=== PATIENT | male | born 1950 | race Two or more races ===

== ENCOUNTER 2025-02-01 10:34 | Inpatient (IN) | payer OTHER ==
[~2025-02-01] VITALS: Ht 170.2 cm; Wt 98.1 kg
[2025-02-01] MEDS ORDERED: IOHEXOL-350 100 ML VIAL IV ONE (10:41)
[2025-02-01] MEDS ORDERED: IV NS 0.9% 250 ML IV ONE (10:41)
[2025-02-01 10:55] LABS: PLATELET COUNT (AUTO) 269 K/uL (150-450); RED BLOOD CELL COUNT(AUTO) 5.42 MIL/uL (4.5-6.0); RED CELL DISTRIBUTION WIDTH 14.1 % (11.5-15.0); WHITE BLOOD COUNT (AUTO) 9.2 K/uL (4.3-11.0)
[2025-02-01 11:03] LABS: CALCIUM, SERUM 9.3 mg/dL (8.5-10.1); CREATININE 0.8 mg/dL (0.6-1.3); SODIUM SERUM 136 mmol/L (136-145); UREA NITROGEN, BLOOD 15 mg/dL (7-18)
[2025-02-01 11:09] LABS: ASPARTATE AMINOTRANSFERASE 20 U/L (15-37); TOTAL PROTEIN, SERUM 9.4 g/dL (6.4-8.2)
[2025-02-01 11:13] LABS: ALCOHOL, BLOOD < 3 mg/dL (0-10)
[2025-02-01 12:04] LABS: APPEARANCE,URINE Turbid (CLEAR); BLOOD, URINE Moderate Ery/uL (NEGATIVE); LEUKOCYTE ESTERASE ,URINE Large (NEGATIVE); UGLUCOSE Negative (NEGATIVE)
[2025-02-01 12:06] LABS: NITRITE, URINE POSITIVE (NEGATIVE)
[2025-02-01 12:10] LABS: ADD URINE CULTURE YES; SQUAMOUS EPITHELIAL CELL,UR None Seen /HPF (None Seen)
[2025-02-01 12:17] LABS: AMPHETAMINE, URINE NEGATIVE (NEGATIVE); BARBITURATE, URINE NEGATIVE (NEGATIVE); BENZODIAZEPINE, URINE NEGATIVE (NEGATIVE); CANNABINOID, URINE NEGATIVE (NEGATIVE); COCCAINE, URINE NEGATIVE (NEGATIVE); OPIATE, URINE NEGATIVE (NEGATIVE)
[2025-02-01] MEDS: CEFTRIAXONE 1GM BAG (ER ONLY) 1 GM/50 ML PIGGYBACK IV ONE (14:39)
[2025-02-01 20:00] VITALS: BP 148/87; TEMP 97.9; O2SAT 95
[2025-02-01] MEDS ORDERED: ACETAMINOPHEN 325 MG TABLET PO PRN (20:00)
[2025-02-01] MEDS ORDERED: Z GUARD REMEDY 4 OZ OINT TP PRN (20:00)
[2025-02-01] MEDS ORDERED: ONDANSETRON HCL/PF 4 MG/2 ML VIAL IVP PRN (20:00)
[2025-02-01] MEDS: ENOXAPARIN SODIUM 40 MG/0.4 ML DISP.SYRIN SQ SCH (21:20)
[2025-02-01] MEDS: ATORVASTATIN 40 MG TABLET PO SCH (21:21)
[2025-02-02] VITALS: BP 135/85; TEMP 98.8; O2SAT 93
[2025-02-02 04:00] VITALS: BP 167/98; TEMP 98.1; O2SAT 94
[2025-02-02 07:43] LABS: CALCIUM, SERUM 9.8 mg/dL (8.5-10.1); CREATININE 0.8 mg/dL (0.6-1.3); PHOSPHORUS 4.0 mg/dL (2.5-4.9); SODIUM SERUM 139.0 mmol/L (136-145); UREA NITROGEN, BLOOD 16.0 mg/dL (7-18)
[2025-02-02 07:44] LABS: PLATELET COUNT (AUTO) 252 K/uL (150-450); RED BLOOD CELL COUNT(AUTO) 5.28 MIL/uL (4.5-6.0); RED CELL DISTRIBUTION WIDTH 14.1 % (11.5-15.0); WHITE BLOOD COUNT (AUTO) 7.8 K/uL (4.3-11.0)
[2025-02-02 08:00] VITALS: BP 167/82; TEMP 97.7; O2SAT 96
[2025-02-02 08:15] LABS: LDL 58.0 mg/dL (0-99)
[2025-02-02] MEDS: CLOPIDOGREL BISULFATE 75 MG TABLET PO SCH (08:23)
[2025-02-02] MEDS: PANTOPRAZOLE 40 MG TABLET.DR PO SCH (08:23)
[2025-02-02 12:00] VITALS: BP 153/83; TEMP 97.9; O2SAT 95
[2025-02-02] MEDS: METOPROLOL TARTRATE 25 MG TABLET PO SCH (13:24)
[2025-02-02] MEDS: AMLODIPINE BESYLATE 10 MG TABLET PO SCH (13:24)
[2025-02-02] MEDS ORDERED: AMLO-213 PO (13:38)
[2025-02-02] MEDS ORDERED: ROSU5TAB PO (13:38)
[2025-02-02] MEDS ORDERED: TICA90TA PO (13:38)
[2025-02-02] MEDS ORDERED: LEVO750T46 PO (13:38)
[2025-02-02] MEDS ORDERED: METO25TA20 PO (13:38)
[2025-02-02] MEDS: CEFTRIAXONE 1 G in IV D5W 50 ML IV SCH (14:24)
[2025-02-02 16:00] VITALS: BP 150/80; TEMP 98.6; O2SAT 95
[2025-02-02] MEDS: TICAGRELOR 90 MG TABLET PO SCH (17:28)
[2025-02-02] MEDS: MAGNESIUM HYDROXIDE 30 ML UDC PO PRN (18:36)
[2025-02-02 20:00] VITALS: BP 162/89; TEMP 97.9; O2SAT 98
[2025-02-03] VITALS: BP 165/86; TEMP 98.1; O2SAT 95
[2025-02-03 04:00] VITALS: BP 162/92; TEMP 98.5; O2SAT 95
[2025-02-03] MEDS: BISACODYL SUPP (10 MG) 10 MG/SUPP.RECT SUPP.RECT RC ONE ×2 (05:05→05:08)
[2025-02-03 08:00] VITALS: BP 157/91; TEMP 98.1; O2SAT 98
[2025-02-03] MEDS: POLYETHYLENE GLYCOL 3350 17 GM POWD.PACK PO SCH (08:25)
[2025-02-03 12:00] VITALS: BP 148/94; TEMP 98.1; O2SAT 97
[2025-02-03 16:00] VITALS: BP 151/87; TEMP 97.9; O2SAT 97
[2025-02-03 20:00] VITALS: BP 159/80; TEMP 97.5; O2SAT 98
[2025-02-04] VITALS (7 sets, daily range): BP systolic 137–162; BP diastolic 80–92; TEMP 97.5–98.4; O2SAT 95–98
[2025-02-04] MEDS ORDERED: CARV12.5 PO (10:49)
[2025-02-04] MEDS: CARVEDILOL 12.5 MG TABLET PO SCH (11:18)
[2025-02-04] MEDS ORDERED: IOHEXOL-350 100 ML VIAL IV ONE (16:56)
[2025-02-04] MEDS ORDERED: CT SWABBABLE VALVE TRANS SET 1 EA INFUS.SET MC ONE (16:56)
[2025-02-04] MEDS ORDERED: IV NS 0.9% 250 ML IV ONE (16:57)
[2025-02-05 04:00] VITALS: BP 172/96; TEMP 97.5; O2SAT 95
[2025-02-05 08:00] VITALS: BP 186/96; TEMP 97.1; O2SAT 97
[2025-02-05] MEDS ORDERED: CARVEDILOL 12.5 MG TABLET PO SCH ×2 (08:30→17:00)
[2025-02-05] MEDS ORDERED: AMLODIPINE BESYLATE 10 MG TABLET PO SCH (08:30)
[2025-02-05 12:03] VITALS: BP 154/91; TEMP 98.3; O2SAT 96
[2025-02-05] MEDS: LEVOFLOXACIN (250MG) 250 MG TABLET PO ONE (14:40)
[2025-02-05] MEDS ORDERED: CARVEDILOL 12.5 MG TABLET PO ONE (15:00)
[2025-02-05] MEDS ORDERED: METO25TA6 PO (15:17)
[2025-02-05] MEDS: METOPROLOL TARTRATE 25 MG TABLET PO SCH (15:32)
[2025-02-05 16:00] VITALS: BP 160/93; TEMP 98.4; O2SAT 98
[2025-02-05 17:14] VITALS: BP 151/90; TEMP 98.4; O2SAT 98
[2025-02-05 20:00] VITALS: BP 158/88; TEMP 98.9; O2SAT 95
[2025-02-06 04:00] VITALS: BP 168/88; TEMP 98.6; O2SAT 95
[2025-02-06] MEDS: AMLODIPINE BESYLATE 10 MG TABLET PO SCH (08:22)
[2025-02-06] MEDS ORDERED: METO50TA16 PO (08:23)
[2025-02-06] MEDS ORDERED: CLONIDINE HCL 0.1 MG TABLET PO PRN (08:30)
[2025-02-06] MEDS: METOPROLOL TARTRATE 25 MG TABLET PO SCH (08:53)
[2025-02-06 12:00] VITALS: BP 135/84; TEMP 98.3; O2SAT 97
[2025-02-06 22:30] VITALS: BP 149/89; TEMP 98.6; O2SAT 96
[2025-02-07 04:00] VITALS: BP 156/85; TEMP 97.4; O2SAT 93
[2025-02-07] MEDS: LEVOFLOXACIN (250MG) 250 MG TABLET PO SCH (09:04)
[2025-02-07] MEDS: NIFEdipine XL (30MG) 30 MG TAB PO SCH (09:05)
[2025-02-07] MEDS ORDERED: NIFE60TA2 PO (09:06)
[2025-02-07] MEDS: AMLODIPINE BESYLATE 5 MG TABLET PO SCH (11:22)
[2025-02-07 12:00] VITALS: BP 141/74; TEMP 97.4; O2SAT 96
[2025-02-07] MEDS: LISINOPRIL (20MG) 20 MG TABLET PO SCH (12:52)
[2025-02-07 16:00] VITALS: BP 152/83; TEMP 97.8; O2SAT 96
[2025-02-07] MEDS ORDERED: METOPROLOL TARTRATE 25 MG TABLET PO SCH (16:00)
[2025-02-07 20:00] VITALS: BP 140/77; TEMP 98.6; O2SAT 95
[2025-02-08] MEDS ORDERED: HYDR-4076 PO (07:28)
[2025-02-08] MEDS ORDERED: AMLO10TA4 PO (07:28)
== END 2025-02-07 23:06 | DRG 65 ==
LOC: ER 10:37 → TELE-TD 17:33 → TELE1 17:40 → MEDSG1 02-03 10:32 → UNDODISIN 02-06 21:12 → TELE1 02-07 11:56
PROVIDERS: ADMIT Nurse Practitioner Family; ATTEND Internal Medicine
DX: I63.9 Cerebral infarction, unspecified (principal); I69.354 Hemiplegia and hemiparesis following cerebral infarction affecting left non-dominant side; N39.0 Urinary tract infection, site not specified; E78.5 Hyperlipidemia, unspecified; E66.9 Obesity, unspecified; I10 Essential (primary) hypertension; Z68.34 Body mass index [BMI] 34.0-34.9, adult; R29.701 NIHSS score 1; B96.5 Pseudomonas (aeruginosa) (mallei) (pseudomallei) as the cause of diseases classified elsewhere; R20.2 Paresthesia of skin; I69.341 Monoplegia of lower limb following cerebral infarction affecting right dominant side; Z79.02 Long term (current) use of antithrombotics/antiplatelets; Z68.33 Body mass index [BMI] 33.0-33.9, adult; Z96.651 Presence of right artificial knee joint; I69.393 Ataxia following cerebral infarction; R07.89 Other chest pain
CPT/HCPCS: 36415; 70450-TC; 70496-TC; 70498-TC; 70551-TC; 71045-TC; 80048-TC; 80053-TC; 80061-TC; 81001; 82962-TC; 83735-TC; 84100-TC; 84443-TC; 84484-TC; 85025-TC; 85730-TC; 87086-TC; 87186-TC; 92526; 92611; 93307-TC; 97110-TC; 97116-TC; 97530-TC; 97535-TC; A4223; G0378; G0480; J0696; J1650; J7050; J7060; Q9967